=== PATIENT | female | born 1965 | race Caucasian/White ===

== ENCOUNTER → 2017-02-05 17:57 | Outpatient (CLI) | payer MEDICAID ==
[2015-07-30 17:46] VITALS: BMI 34.4
[~2017-02-05 17:57] MED LIST: BUSPAR 15 MG TA15 MG PO; CARAFATE1 G PO; COZAAR100 MG PO; CYCLOBENZAPRINE10 MG PO; CYMBALTA60 MG PO; DESERYL100 MG PO; KLOR-CON 1010 MEQ PO; LIPITOR40 MG PO; PROBIOTIC1 EAC1 PO; PROTONIX40 MG PO; VITAMIN D2000 UNIT PO
== END | disposition home or self-care (01) ==
LOC: D.MAMMO 15:00
DX: Z12.31 Encounter for screening mammogram for malignant neoplasm of breast (principal)

== ENCOUNTER → 2017-03-27 08:14 | Outpatient (CLI) | payer MEDICAID ==
[2015-07-30 17:46] VITALS: BMI 34.4
[2017-03-27 10:20] LABS: T4 THYROXINE 10.8 ug/dL (4.7-13.3); THYROID STIMULATING HORMONE 0.91 uIU/mL (0.36-3.74)
== END | disposition home or self-care (01) ==
LOC: D.NM 08:14
PROVIDERS: Internal Medicine Gastroenterology
DX: R10.9 Unspecified abdominal pain (principal); R93.3 Abnormal findings on diagnostic imaging of other parts of digestive tract

== ENCOUNTER → 2017-07-17 08:45 | Outpatient (CLI) | payer MEDICAID ==
[2015-07-30 17:46] VITALS: BMI 34.4
[2017-07-24 07:30] LABS: IMMUNOGLOBULIN E 16 IU/mL (0-100)
== END | disposition home or self-care (01) ==
LOC: D.RT 07-08 10:00 → D.LAB 07-08 10:00 → D.RAD 07-08 10:00 → D.RT 07-08 10:45 → D.RAD 07-08 11:00 → D.LAB 07-08 11:15 → D.RT 08:45
PROVIDERS: Internal Medicine Pulmonary Disease
DX: J45.909 Unspecified asthma, uncomplicated (principal)

== ENCOUNTER → 2017-10-22 09:17 | Outpatient (CLI) | payer MEDICAID ==
[2015-07-30 17:46] VITALS: BMI 34.4
== END | disposition home or self-care (01) ==
LOC: D.RAD 09:17
DX: J98.11 Atelectasis (principal)

== ENCOUNTER → 2018-02-22 10:00 | Outpatient (CLI) | payer MEDICAID ==
[2015-07-30 17:46] VITALS: BMI 34.4
== END | disposition home or self-care (01) ==
LOC: D.RAD 10:00
DX: R11.0 Nausea (principal)

== ENCOUNTER → 2018-03-16 21:08 | Outpatient (CLI) | payer MEDICAID ==
[2015-07-30 17:46] VITALS: BMI 34.4
== END | disposition home or self-care (01) ==
LOC: D.MAMMO 13:15
DX: Z12.31 Encounter for screening mammogram for malignant neoplasm of breast (principal)

== ENCOUNTER → 2018-12-23 08:10 | Outpatient (CLI) | payer MEDICAID ==
[2015-07-30 17:46] VITALS: BMI 34.4
== END | disposition home or self-care (01) ==
LOC: D.US 08:10
PROVIDERS: ATTEND Internal Medicine Gastroenterology
DX: R10.9 Unspecified abdominal pain (principal)

== ENCOUNTER → 2019-01-28 09:25 | Outpatient (CLI) | payer MEDICAID ==
[2015-07-30 17:46] VITALS: BMI 34.4
== END | disposition home or self-care (01) ==
LOC: D.RAD 09:00
PROVIDERS: ATTEND Internal Medicine Gastroenterology
DX: K31.84 Gastroparesis (principal); K21.9 Gastro-esophageal reflux disease without esophagitis; R11.2 Nausea with vomiting, unspecified

== ENCOUNTER 2019-04-22 08:00 | Outpatient (CLI) | payer MEDICAID ==
[2015-07-30 17:46] VITALS: BMI 34.4
== END 2019-04-22 23:59 | disposition home or self-care (01) ==
LOC: D.MAMMO 08:00
PROVIDERS: ATTEND Family Medicine
DX: Z12.31 Encounter for screening mammogram for malignant neoplasm of breast (principal)

== ENCOUNTER → 2020-01-05 08:06 | Outpatient (CLI) | payer MEDICAID ==
[2015-07-30 17:46] VITALS: BMI 34.4
== END | disposition home or self-care (01) ==
LOC: D.NM 08:06
PROVIDERS: ATTEND Internal Medicine Gastroenterology
DX: K31.84 Gastroparesis (principal); K58.9 Irritable bowel syndrome, unspecified; R10.11 Right upper quadrant pain; R10.32 Left lower quadrant pain

== ENCOUNTER 2020-06-15 16:45 | Outpatient (CLI) | payer MEDICAID ==
[2015-07-30 17:46] VITALS: BMI 34.4
== END 2020-06-15 23:59 | disposition home or self-care (01) ==
LOC: D.MAMMO 16:45
PROVIDERS: ATTEND Family Medicine
DX: Z12.31 Encounter for screening mammogram for malignant neoplasm of breast (principal)